=== PATIENT | male | born 1965 | race Two or more races ===

== ENCOUNTER 2016-11-01 07:34 | Emergency (ER) | payer OTHER ==
[2016-11-01] MEDS ORDERED: IOPAMIDOL 370 (76%) 100 ML VIAL IV ONE (07:35)
[2016-11-01 08:51] LABS: ABSOLUTE NEUTROPHIL COUNT 7.2 K/mm3 (1.8-7.7); BASO % 0.5 % (0.2-1.0); EOS % 0.3 % (0.9-2.9); HEMATOCRIT 47.1 % (32.0-52.0); HEMOGLOBIN 15.1 gm/l (14.0-18.0); IMM NEUT% 0.3 % (0-1); LYMPH # 0.8 (1.0-4.8); LYMPH % 9.3 % (15-45); MEAN CELL VOLUME 97.5 fl (80.0-94.0); MEAN CORPUSCULAR HEMOGLOBIN 31.3 pg (27.0-31.0); MEAN CORPUSCULAR HGB CONC 32.1 g/dl (33.0-37.0); MEAN PLATELET VOLUME 11.4 fl (7.4-10.4); MONO # 0.6 (0.0-0.8); MONO % 6.8 % (4-12); NEUT % 82.8 % (43-75); PLATELET COUNT 113 K/mm3 (130-400); RED CELL DISTRIBUTION WIDTH 13.2 % (11.5-14.5)
[2016-11-01 09:13] LABS: ALB/GLOB RATIO 1.3 (>1.0); ALBUMIN 3.7 gm/dL (3.5-5.7); CALCIUM 8.4 mg/dL (8.6-10.3)
--- NOTE | 2016-11-01 10:17 | CT ---
EXAMINATION: CT angiography of the thorax.CTA CHEST FOR PE INDICATION: Hemoptysis. History of TB. COMPARISON: 11/29/2012. TECHNIQUE: Helical scan mode CT of the Thorax after uneventful intravenous contrast administration of 80 ml of Isovue-370. Imaging device: Audiodraft multidetector CT scan. Helically acquired stacked images were reviewed in the axial, sagittal and coronal planes. Additional 3-D postprocessing was performed and reconstructed images were acquired at the [employer] workstation and reviewed as well. FINDINGS: The bolus is of good quality for diagnosis of pulmonary embolism. There are no pulmonary arterial filling defects. No vascular malformations are identified. The heart and great vessels opacify normally. The lung parenchyma: There is basilar groundglass opacities involving the superior segments of the lower lobes bilaterally left greater than right. There is no pleural effusion. No abscess is identified. The lung apices are clear. No fibrosis is identified. No cavitary changes are seen. Pleural effusion: None: Mediastinum: There is no significant mediastinal or hilar lymphadenopathy. Osseus structures: No gross lytic or blastic lesions. Soft tissues: within normal limits Limited evaluation of the abdomen on this arterial phase injection reveals: no gross abnormalities. IMPRESSION: 1. Negative for pulmonary embolism. 2. Bibasilar pneumonia left greater than right. Opacity exhibits a groundglass appearance. No focal mass or reactive adenopathy or pleural effusion is identified. The findings were uploaded to the electronic medical record for review at approximately 10:17 AM 11/01/2016
[2016-11-01] MEDS ORDERED: AMOX 875 MG/CLAV 125 MG 1 EACH TABLET ONE (11:47)
[2016-11-01] MEDS ORDERED: AMOXICILLIN TRIHYDRATE 250 MG CAPSULE ONE (11:47)
[2016-11-01] MEDS ORDERED: DOXYCYCLINE HYCLATE 100 MG TABLET ONE (11:48)
== END 2016-11-01 12:07 | disposition home or self-care (01) ==
LOC: ED 07:34
DX: J18.9 Pneumonia, unspecified organism (principal)
CPT/HCPCS: 85025; 80053; 87880; 84484; 71275; 87804; 99284 ×2; A9270 ×3; Q9967